=== PATIENT | female | born 1980 | race Caucasian/White ===

== ENCOUNTER 2016-06-21 18:21 | Emergency (ER) | payer BC, OTHER ==
[~2016-06-21] VITALS: Ht 167.6 cm; Wt 89.8 kg
[2016-06-21 18:40] VITALS: BP 157/90; PULSE 80; RESP 18; TEMP 98; O2SAT 98
[2016-06-21] MEDS ORDERED: ALLE60TA PO (18:41)
[2016-06-21] MEDS ORDERED: MONT4CHW4 CHEW (18:41)
[2016-06-21] MEDS ORDERED: VENTAER INH (18:41)
[2016-06-21] MEDS ORDERED: Birth control PO (18:41)
--- NOTE | 2016-06-21 18:51 | PD ---
HPI Chief Complaint: Neuro Symptoms/ Deficits Time Seen by Provider: 18:37 Travel History International Travel<30 days: No Contact w/Intl Traveler<30days: No Traveled to known affect area: No History of Present Illness HPI This is a 36-year-old female who presents to the emergency department having woken up this morning with right sided facial weakness, described as difficulty blinking her eye and some slurred speech, constant, moderate severity with no associated numbness. She's had no difficulty walking or coordinating her movements. She's never had anything like this before. She denies any recent illness. She does say that her primary care doctor was recommending that she go to an ENT because she has recurrent episodes of what she thinks is sialoadenitis. She also has an appointment with a dentist tomorrow because she' s been having some dental pain in her upper wisdom teeth and in her ear. PFSH Past Medical History Medical other: Yes (Allergies) Tetanus Vaccination: > 5 Years Influenza Vaccination: No ?: Not LMP: Last week Past Surgical History Surgical History: No Previous Surgery Social History Alcohol Use: No Tobacco Use: No Substance Use: No Allergies-Medications (Allergen,Severity, Reaction): Coded Allergies: No Known Allergies (Unverified , 06/21/16) Reported Meds & Prescriptions Reported Meds & Active Scripts Active Reported Ventolin Hfa 18 GM Inh (Albuterol Sulfate) 90 Mcg/Act Aer 2 Puff INH Q4-6H PRN Montelukast (Montelukast Sodium) 4 Mg Chew 4 Mg CHEW HS [ control] 1 Tab PO DAILY Kate Allergy (Fexofenadine HCl) 60 Mg Tab 60 Mg PO DAILY Review of Systems Except as stated in HPI: all other systems reviewed are Neg Physical Exam Narrative GENERAL:Well appearing, no acute distress SKIN: Warm and dry. HEAD: Atraumatic. Normocephalic. EYES: Pupils equal and round. No injection or drainage. ENT: Moist mucous membranes NECK: Trachea midline. CARDIOVASCULAR: Regular rate and rhythm. No murmur appreciated. RESPIRATORY: Clear to auscultation. Breath sounds equal bilaterally. GASTROINTESTINAL: Abdomen soft, non-tender, nondistended. MUSCULOSKELETAL: No obvious deformities. NEUROLOGICAL: Awake and alert. Weakness of the right facial nerve with forehead involvement, unable to close her eye and unable to blow cheeks out. Other cranial nerves are intact. 5 out of 5 strength in the bilateral upper and lower extremities. No upper extremity ataxia. Visual pacheco are normal. Mild dysarthria. PSYCHIATRIC: Appropriate mood and affect; insight and judgment normal. Data Data Last Documented VS Vital Signs Date Time Temp Pulse Resp B/P Pulse Ox O2 Delivery O2 Flow Rate FiO2 06/21/16 18:40 98.0 80 18 157/[address] Brain W/O Iv Contrast(Rout) (06/21/16 ) Ct Facial Bones W Iv Contrast (06/21/16 ) Ed Urine Pregnancytest Poc (06/21/16 18:38) Complete Blood Count With Diff (06/21/16 18:38) Basic Metabolic Panel (Bmp) (06/21/16 18:38) MDM Medical Decision Making Medical Screen Exam Complete: Yes Emergency Medical Condition: Yes Interpretation(s) Afebrile, no tachycardia, hypertensive Differential Diagnosis Billingsley's palsy, dental infection, facial tumor, stroke Narrative Course This is a 36-year-old female who presents to the emergency department with peripheral nerve facial palsy that developed this morning. She has no other neurologic deficits on exam. She does have a history of recurrent swelling on the right side of her face and is having pain that she was attributing to her wisdom teeth. I think it's reasonable to obtain a CT of the head and a CT of the face with contrast to evaluate for a possible parotid mass or other infectious etiology of her symptoms. If this is normal I think she can be discharged on antivirals and steroids. Bailey Miranda MD Jun 21, 2016 18:51
[2016-06-21 19:29] VITALS: BP 156/85; PULSE 76; RESP 18; O2SAT 100
[2016-06-21 19:59] LABS: BASOPHIL # 0.1 TH/MM3 (0-0.2); BASOPHIL % 0.9 % (0.0-2.0); EOSINOPHIL # 0.1 TH/MM3 (0-0.4); EOSINOPHIL % 1.1 % (0.0-4.0); HEMATOCRIT 38.9 % (35.0-46.0); HEMO FLAGS DIFF FINAL; LYMPH % 31.5 % (9.0-44.0); LYMPHOCYTE # 2.1 TH/MM3 (1.0-4.8); MEAN CELL VOLUME 79.8 FL (80.0-100.0); MEAN CORPUSCULAR HEMOGLOBIN 26.8 PG (27.0-34.0); MEAN CORPUSCULAR HGB CONC 33.5 % (32.0-36.0); MONO % 5.3 % (0.0-8.0); NEUT % 61.2 % (16.0-70.0); PLATELET COUNT 288 TH/MM3 (150-450); RED BLOOD COUNT 4.87 MIL/MM3 (4.00-5.30); RED CELL DISTRIBUTION WIDTH 12.9 % (11.6-17.2); WHITE BLOOD COUNT 6.7 TH/MM3 (4.0-11.0)
[2016-06-21 20:13] LABS: POTASSIUM 3.2 MEQ/L (3.5-5.1)
[2016-06-21 20:31] VITALS: BP 148/95; PULSE 95; RESP 18; O2SAT 97
[2016-06-21 20:40] LABS: BICARBONATE 22.8 MEQ/L (21.0-32.0)
--- NOTE | 2016-06-21 20:48 | RADHPO ---
EXAM DATE/TIME: 06/21/2016 20:17 [facility] COMPARISON: No previous studies available for comparison. INDICATIONS : Right facial weakness. Slurred speech. RADIATION DOSE: 63.35 CTDIvol (mGy) MEDICAL HISTORY : None SURGICAL HISTORY : None. ENCOUNTER: Initial ACUITY: 1 day PAIN SCALE: 0/10 LOCATION: Right cranial TECHNIQUE: Multiple contiguous axial images were obtained of the head. Using automated exposure control and adj ustment of the mA and/or kV according to patient size, radiation dose was kept as low as reasonably a chievable to obtain optimal diagnostic quality images. FINDINGS: CEREBRUM: The ventricles are normal for age. No evidence of midline shift, mass lesion, hemorrhage or acute in farction. No extra-axial fluid collections are seen. POSTERIOR FOSSA: The cerebellum and brainstem are intact. The 4th ventricle is midline. The cerebellopontine angle i s unremarkable. EXTRACRANIAL: The visualized portion of the orbits is intact. SKULL: The calvaria is intact. No evidence of skull fracture. CONCLUSION: No acute disease. Robert Beckman MD on June 21, 2016 at 20:46 Board Certified Radiologist. This report was verified electronically.
[2016-06-21] MEDS ORDERED: IOHEXOL 350 MG/ML 10 ML VIAL (for RAD DIAG) IV ONE (20:54)
[2016-06-21 20:55] LABS: CALCIUM-PROTEIN CORRECTED 7.3 MG/DL (8.5-10.1)
[2016-06-21] MEDS ORDERED: CALCIUM GLUCONATE INJ 1 GM in DEXTROSE 5% IN WATER 100ML INJ 100 ML IV ONE ×2 (21:00)
--- NOTE | 2016-06-21 21:03 | PD ---
Physical Exam Time Seen by Provider: 21:[address] Miranda left this patient with me to check the CT scan and laboratory and make a disposition, likely discharge. The patient states there is no possibility of . Data Data Last Documented VS Vital Signs Date Time Temp Pulse Resp B/P Pulse Ox O2 Delivery O2 Flow Rate FiO2 06/21/16 20:31 95 18 148/95 97 Room Air 06/21/16 18:[address] Brain W/O Iv Contrast(Rout) (06/21/16 ) Ct Facial Bones W Iv Contrast (06/21/16 ) Ed Urine Pregnancytest Poc (06/21/16 18:38) Complete Blood Count With Diff (06/21/16 18:38) Basic Metabolic Panel (Bmp) (06/21/16 18:38) Protein Corrected Calcium(Pcc) (06/21/16 19:45) Iohexol 350 Inj (Omnipaque 350 Inj) (06/21/16 20:54) Calcium Gluconate Inj (Calcium Gluconate (06/21/16 21:00) Potassium Chloride Eff (K-Lyte Cl Eff) (06/21/16 21:15) Acyclovir Liq (Zovirax Liq) (06/21/16 21:45) Prednisolone (Alc Free) Liq (Prednisolon (06/21/16 21:45) Labs Laboratory Tests Test 06/21/16 19:45 White Blood Count 6.7 TH/MM3 Red Blood Count 4.87 MIL/MM3 Hemoglobin 13.0 GM/DL Hematocrit 38.9 % Mean Corpuscular Volume 79.8 FL Mean Corpuscular Hemoglobin 26.8 PG Mean Corpuscular Hemoglobin 33.5 % Concent Red Cell Distribution Width 12.9 % Platelet Count 288 TH/MM3 Mean Platelet Volume 8.6 FL Neutrophils (%) (Auto) 61.2 % Lymphocytes (%) (Auto) 31.5 % Monocytes (%) (Auto) 5.3 % Eosinophils (%) (Auto) 1.1 % Basophils (%) (Auto) 0.9 % Neutrophils # (Auto) 4.0 TH/MM3 Lymphocytes # (Auto) 2.1 TH/MM3 Monocytes # (Auto) 0.4 TH/MM3 Eosinophils # (Auto) 0.1 TH/MM3 Basophils # (Auto) 0.1 TH/MM3 CBC Comment DIFF FINAL Differential Comment Sodium Level 145 MEQ/L Potassium Level 3.2 MEQ/L Chloride Level 113 MEQ/L Carbon Dioxide Level 22.8 MEQ/L Anion Gap 9 MEQ/L Blood Urea Nitrogen 10 MG/DL Creatinine 0.73 MG/DL Estimat Glomerular Filtration 91 ML/MIN Rate Random Glucose 78 MG/DL Calcium Level 7.1 MG/DL Protein Corrected Calcium 7.3 MG/DL Total Protein 6.8 GM/DL [facility] Medical Record Reviewed: Yes Supervised Visit with BOB: Yes Interpretation(s) The CT brain shows no acute disease. The CT of the facial bones without IV contrast shows bilateral, shows bilateral agueda bullosa but otherwise no acute change. The CBC is essentially normal. The complete metabolic profile shows potassium 3.2, calcium of 7.3 protein corrected but is otherwise unremarkable. The [id number] urine test was negative. Differential Diagnosis Billingsley's palsy, CVA, dental infection, tumor, electrolyte disorder, other metabolic disorder Narrative Course The patient appears to have Billingsley's palsy. She also has hypokalemia and hypocalcemia. The patient is given potassium and calcium here, she is given prescriptions for Zovirax and tapered course of prednisone. Diagnosis Primary Impression: Billingsley's palsy Additional Instruction: Take Zovirax 20 cc 5 times daily for 7 days prednisone 5 cc twice daily for 4 days followed by 5 cc once daily for 4 days. Follow-up next week with your primary care physician. If you have any problems, return to emergency department for reevaluation. Med/Other Pt SpecificInfo: Prescription(s) given Scripts Prednisolone Liq 15 Mg/5 Ml Soln15 Mg PO BID PRN (X4 days than daily X4 days) # 60 ML Ref 0 Prov:Jatinder Huynh MD 06/21/16 Acyclovir Liq (Zovirax Liq)200 Mg/5 Ml [id number] Mg PO 5 TIMES A DAY 7 Days Ref 0 Prov:Jatinder Huynh MD 06/21/16 Disposition: 01 DISCHARGE HOME Condition: Stable Jatinder Huynh MD Jun 21, 2016 21:03
--- NOTE | 2016-06-21 21:08 | RADHPO ---
EXAM DATE/TIME: 06/21/2016 20:39 [facility] COMPARISON: No previous studies available for comparison. INDICATIONS : Right facial weakness. Slurred speech. IV CONTRAST: 75 cc Omnipaque 350 (iohexol) IV RADIATION DOSE: 34.92 CTDIvol (mGy) MEDICAL HISTORY : None SURGICAL HISTORY : None. ENCOUNTER: Initial ACUITY: 1 day PAIN SCALE: 0/10 LOCATION: Right facial TECHNIQUE: Volumetric scanning of the facial bones was performed. Using automated exposure control and adjustme nt of the mA and/or kV according to patient size, radiation dose was kept as low as reasonably achiev able to obtain optimal diagnostic quality images. FINDINGS: ORBITS: The orbital and infraorbital osseous structures are intact. The retroconal structures have a normal configuration. No radiopaque foreign bodies are seen. NASAL BONE: The nasal bone and maxillary spine are intact ZYGOMATIC ARCHES: Symmetric without evidence of fracture. SINUSES: The maxillary, ethmoid and frontal sinuses are intact. No air-fluid levels seen. NASAL CAVITY: The nasal septum is intact and midline. The lacrimal ducts are intact. Bilateral agueda bullosa is n oted. SOFT TISSUES: No radiopaque foreign bodies seen. No soft-tissue swelling is seen. INTRACRANIAL: No intracranial air seen. CRIBIFORM PLATE: Grossly intact. CONCLUSION: No acute facial bone fracture. Bilateral agueda bullosa. Robert Beckman MD on June 21, 2016 at 21:05 Board Certified Radiologist. This report was verified electronically.
[2016-06-21] MEDS ORDERED: POTASSIUM CHLORIDE 25 MEQ EFFERVESCENT TAB PO ONE (21:15)
[2016-06-21] MEDS ORDERED: POTASSIUM CHLORIDE 20 MEQ CONTROLLED RELEASE TAB PO ONE (21:15)
[2016-06-21] MEDS ORDERED: PRED15UDC PO (21:30)
[2016-06-21] MEDS ORDERED: [UNRECOGNIZED DRUG - CODE] PO (21:30)
[2016-06-21 21:45] VITALS: BP 119/79; PULSE 77; RESP 18; O2SAT 100
[2016-06-21] MEDS ORDERED: prednisoLONE ALCOHOL/DYE FREE 15 MG/5 ML ORAL SYR PO ONE (21:45)
[2016-06-21] MEDS ORDERED: ACYCLOVIR SUSP 200 MG/5 ML UDC PO ONE (21:45)
[2016-06-21] MEDS ORDERED: ACYCLOVIR 800 MG TAB PO ONE (22:00)
[2016-06-21] MEDS ORDERED: prednisoLONE (CONTAINS ALCOHOL) 15 MG/5 ML ORAL SYR PO ONE (22:00)
== END 2016-06-21 22:34 | disposition home or self-care (01) ==
LOC: PHED 18:21
DX: G51.0 Bell's palsy (principal)
CPT/HCPCS: 70450; 70487; 80048; 84155; 84703; 85025; 96365; 99285; J0610; J7510; Q9967